=== PATIENT | male | born 1990 | race African-American/Black ===

== ENCOUNTER 2016-07-25 19:05 | Emergency (ER) | payer OTHER, MEDICAID ==
[2016-07-25 19:11] VITALS: BP 148/84; PULSE 88; RESP 16; TEMP 97.6; O2SAT 100
[2016-07-25 19:40] VITALS: RESP 16; O2SAT 97
[2016-07-25] MEDS ORDERED: SODIUM CHLOR 0.9% 1000 ML INJ 1,000 ML IV SCH (20:02)
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
[2016-07-25] MEDS ORDERED: DIPHTH/TETANUS/ACEL PERTUSSIS (BOOSTER) 0.5 ML VIAL/PFS IM ONE (20:15)
[2016-07-25] MEDS ORDERED: SODIUM CHLORIDE 0.9% FLUSH 5 ML FLUSH IVF PRN (20:15)
--- NOTE | 2016-07-25 20:28 | RADRPT ---
EXAM DATE/TIME: 07/25/2016 20:23 [facility] COMPARISON: CHEST SINGLE AP, April 10, 2015, 20:50. INDICATIONS : Evaluate chest for trauma MEDICAL HISTORY : None. SURGICAL HISTORY : None. ENCOUNTER: Initial ACUITY: 1 day PAIN SCORE: Non-responsive. LOCATION: Bilateral chest FINDINGS: A single view of the chest demonstrates the lungs to be symmetrically aerated without evidence of mas s, infiltrate or effusion. The cardiomediastinal contours are unremarkable. Osseous structures are intact. There are multiple overlying electrocardiogram leads. CONCLUSION: Negative trauma study. Ortiz Clarke MD on July 25, 2016 at 20:26 Board Certified Radiologist. This report was verified electronically.
--- NOTE | 2016-07-25 20:29 | RADRPT ---
EXAM DATE/TIME: 07/25/2016 20:25 [facility] COMPARISON: No previous studies available for comparison. INDICATIONS : Evaluate pelvis for trauma MEDICAL HISTORY : None. SURGICAL HISTORY : None. ENCOUNTER: Initial ACUITY: 1 day PAIN SCORE: Non-responsive. LOCATION: Bilateral Pelvis FINDINGS: A single frontal view of the pelvis demonstrates no evidence of fracture. The bony pelvic ring is in tact. Bony mineralization is normal. The soft tissues are intact. CONCLUSION: Negative trauma study. Ortiz Clarke MD on July 25, 2016 at 20:27 Board Certified Radiologist. This report was verified electronically.
--- NOTE | 2016-07-25 20:34 | RADRPT ---
EXAM DATE/TIME: 07/25/2016 20:20 [facility] COMPARISON: No previous studies available for comparison. INDICATIONS : Evaluate left forearm for trauma MEDICAL HISTORY : None. SURGICAL HISTORY : None. ENCOUNTER: Initial ACUITY: 1 day PAIN SCORE: Non-responsive. LOCATION: Left [place] FINDINGS: Two view examination of the left forearm demonstrates no evidence of fracture or dislocation. Bony m ineralization is normal. The soft tissue structures are intact. CONCLUSION: Negative trauma study. Ortiz Clarke MD on July 25, 2016 at 20:32 Board Certified Radiologist. This report was verified electronically.
[2016-07-25 20:45] LABS: AUTOMATED NEUTROPHIL # 4.3 TH/MM3 (1.8-7.7); BASOPHIL # 0.1 TH/MM3 (0-0.2); BASOPHIL % 0.7 % (0.0-2.0); EOSINOPHIL # 0.3 TH/MM3 (0-0.4); EOSINOPHIL % 4.1 % (0.0-4.0); HEMATOCRIT 43.2 % (39.0-51.0); HEMO FLAGS DIFF FINAL; LYMPH % 20.6 % (9.0-44.0); LYMPHOCYTE # 1.6 TH/MM3 (1.0-4.8); MEAN CELL VOLUME 85.1 FL (80.0-100.0); MEAN CORPUSCULAR HEMOGLOBIN 27.9 PG (27.0-34.0); MEAN CORPUSCULAR HGB CONC 32.8 % (32.0-36.0); MONO % 19.3 % (0.0-8.0); NEUT % 55.3 % (16.0-70.0); PLATELET COUNT 242 TH/MM3 (150-450); RED BLOOD COUNT 5.08 MIL/MM3 (4.50-5.90); RED CELL DISTRIBUTION WIDTH 13.2 % (11.6-17.2); WHITE BLOOD COUNT 7.7 TH/MM3 (4.0-11.0)
[2016-07-25 20:56] LABS: APTT (PATIENT) 25.4 SEC (24.3-30.1); INTERNATIONAL NORMALIZED RATIO 1.1 RATIO; PROTHROMBIN TIME - PATIENT 11.9 SEC (9.8-11.6)
[2016-07-25 21:01] LABS: ANION GAP 8 MEQ/L (5-15); BICARBONATE 24.1 MEQ/L (21.0-32.0); BLOOD UREA NITROGEN 16 MG/DL (7-18); CHLORIDE 105 MEQ/L (98-107); GLOMERULAR FILTRATION RATE 96 ML/MIN (>89); POTASSIUM 4.6 MEQ/L (3.5-5.1); SODIUM (NA) 137 MEQ/L (136-145)
[2016-07-25 21:30] VITALS: BP 118/66; PULSE 75; RESP 18; O2SAT 99
== END 2016-07-25 22:24 | disposition left against medical advice (07) ==
LOC: NEPA 19:05
DX: S50.812A Abrasion of left forearm, initial encounter (principal); S70.212A Abrasion, left hip, initial encounter; Z72.0 Tobacco use; V49.3XXA Car occupant (driver) (passenger) injured in unspecified nontraffic accident, initial encounter
CPT/HCPCS: 71010; 72170; 73090; 80048; 80320; 85025; 85610; 85730

== ENCOUNTER 2016-10-09 23:45 | Emergency (ER) | payer MEDICAID ==
[~2016-10-09] VITALS: Ht 193 cm; Wt 85.0 kg
[2016-10-09 23:50] VITALS: BP 140/89; PULSE 80; RESP 16; TEMP 97.6; O2SAT 99
[2016-10-10] MEDS ORDERED: SODIUM CHLORIDE 0.9% FLUSH 10 ML FLUSH IVF PRN (00:15)
[2016-10-10] MEDS ORDERED: ASPIRIN 325 MG TAB PO ONE (00:15)
[2016-10-10 00:32] LABS: AUTOMATED NEUTROPHIL # 3.2 TH/MM3 (1.8-7.7); BASOPHIL # 0.1 TH/MM3 (0-0.2); BASOPHIL % 0.9 % (0.0-2.0); EOSINOPHIL # 0.3 TH/MM3 (0-0.4); EOSINOPHIL % 4.4 % (0.0-4.0); HEMATOCRIT 43.7 % (39.0-51.0); HEMO FLAGS DIFF FINAL; LYMPH % 29.9 % (9.0-44.0); LYMPHOCYTE # 1.9 TH/MM3 (1.0-4.8); MEAN CORPUSCULAR HEMOGLOBIN 27.8 PG (27.0-34.0); MEAN CORPUSCULAR HGB CONC 32.7 % (32.0-36.0); MONO % 14.8 % (0.0-8.0); PLATELET COUNT 277 TH/MM3 (150-450); RED BLOOD COUNT 5.14 MIL/MM3 (4.50-5.90); RED CELL DISTRIBUTION WIDTH 13.5 % (11.6-17.2); WHITE BLOOD COUNT 6.4 TH/MM3 (4.0-11.0)
[2016-10-10 00:50] LABS: ANION GAP 6 MEQ/L (5-15); BICARBONATE 30.8 MEQ/L (21.0-32.0); BLOOD UREA NITROGEN 21 MG/DL (7-18); CHLORIDE 105 MEQ/L (98-107); GLOMERULAR FILTRATION RATE 86 ML/MIN (>89); MAGNESIUM 2.3 MG/DL (1.5-2.5); POTASSIUM 3.6 MEQ/L (3.5-5.1); SODIUM (NA) 142 MEQ/L (136-145)
[2016-10-10 00:54] LABS: CREATINE KINASE 447 U/L (39-308)
[2016-10-10 00:59] LABS: APTT (PATIENT) 25.4 SEC (24.3-30.1); INTERNATIONAL NORMALIZED RATIO 1.1 RATIO; PROTHROMBIN TIME - PATIENT 12.3 SEC (9.8-11.6)
--- NOTE | 2016-10-10 02:10 | RADRPT ---
EXAM DATE/TIME: 10/10/2016 00:50 [facility] COMPARISON: CHEST SINGLE AP, July 25, 2016, 20:23. INDICATIONS : Chest pain. MEDICAL HISTORY : None. SURGICAL HISTORY : None. ENCOUNTER: Initial ACUITY: 1 day PAIN SCORE: 6/10 LOCATION: Bilateral chest FINDINGS: A single view of the chest demonstrates the lungs to be symmetrically aerated without evidence of mas s, infiltrate or effusion. The cardiomediastinal contours are unremarkable. Osseous structures are intact. CONCLUSION: No acute disease. Ventura Marcial MD on October 10, 2016 at 2:08 Board Certified Radiologist. This report was verified electronically.
--- NOTE | 2016-10-10 02:35 | PD ---
HPI Chief Complaint: Chest Pain Time Seen by Provider: 00:01 Travel History International Travel<30 days: No Contact w/Intl Traveler<30days: No Traveled to known affect area: No History of Present Illness HPI This report is in ERROR Please disregard this report and all prior copies ! This report is in ERROR Please disregard this report and all prior copies ! This report is in ERROR Please disregard this report and all prior copies ! PFSH Past Medical History Hx Anticoagulant Therapy: No Asthma: Yes Cardiovascular Problems: No Chemotherapy: No Cerebrovascular Accident: No Diabetes: No Diminished Hearing: No Respiratory: No Immunizations Current: Yes Tetanus Vaccination: < 5 Years Influenza Vaccination: Yes Past Surgical History Surgical History: No Previous Surgery Hysterectomy: No Social History Alcohol Use: Yes Tobacco Use: Yes Substance Use: Yes Allergies-Medications (Allergen,Severity, Reaction): Coded Allergies: Cultivated Oat Pollen (Verified Allergy, Severe, 10/09/16) Iodine (Verified Allergy, Severe, 10/09/16) Seafood (Verified Allergy, Severe, SWELLING, SOB, 10/09/16) Dust (Verified Allergy, Intermediate, 10/09/16) Grass (Verified Allergy, Intermediate, HIVES, 10/09/16) Molds and Smuts (Verified Allergy, Unknown, sob, 10/09/16) Reported Meds & Prescriptions Reported Meds & Active Scripts Active No Active Prescriptions or Reported Medications Physical Exam Narrative This report is in ERROR Please disregard this report and all prior copies ! This report is in ERROR Please disregard this report and all prior copies ! This report is in ERROR Please disregard this report and all prior copies ! Data Data Last Documented VS Vital Signs Date Time Temp Pulse Resp B/P Pulse Ox O2 Delivery O2 Flow Rate FiO2 10/10/16 02:58 97 Room Air 10/10/16 02:58 74 18 129/86 10/10/16 02:58 98.1 Orders Electrocardiogram (10/10/16 00:01) Basic Metabolic Panel (Bmp) (10/10/16 00:01) Ckmb (Isoenzyme) Profile (10/10/16 00:01) Complete Blood Count With Diff (10/10/16 00:01) Magnesium (Mg) (10/10/16 00:01) Prothrombin Time / Inr (Pt) (10/10/16 00:01) Act Partial Throm Time (Ptt) (10/10/16 00:01) Troponin I (10/10/16 00:01) Chest, Single Ap (10/10/16 00:01) Ecg Monitoring (10/10/16 00:01) Bilateral Bp Monitoring (10/10/16 00:01) Iv Access Insert/Monitor (10/10/16 00:) Oximetry (10/10/16 00:01) Oxygen Administration (10/10/16 00:01) Aspirin (Aspirin) (10/10/16 00:15) Sodium Chloride 0.9% Flush (Ns Flush) (10/10/16 00:15) CKMB (10/10/16 00:00) CKMB% (10/10/16 00:00) Labs Laboratory Tests Test 10/10/16 00:00 White Blood Count 6.4 TH/MM3 Red Blood Count 5.14 MIL/MM3 Hemoglobin 14.3 GM/DL Hematocrit 43.7 % Mean Corpuscular Volume 85.0 FL Mean Corpuscular Hemoglobin 27.8 PG Mean Corpuscular Hemoglobin 32.7 % Concent Red Cell Distribution Width 13.5 % Platelet Count 277 TH/MM3 Mean Platelet Volume 8.0 FL Neutrophils (%) (Auto) 50.0 % Lymphocytes (%) (Auto) 29.9 % Monocytes (%) (Auto) 14.8 % Eosinophils (%) (Auto) 4.4 % Basophils (%) (Auto) 0.9 % Neutrophils # (Auto) 3.2 TH/MM3 Lymphocytes # (Auto) 1.9 TH/MM3 Monocytes # (Auto) 0.9 TH/MM3 Eosinophils # (Auto) 0.3 TH/MM3 Basophils # (Auto) 0.1 TH/MM3 CBC Comment DIFF FINAL Differential Comment Prothrombin Time 12.3 SEC Prothromb Time International 1.1 RATIO Ratio Activated Partial 25.4 SEC Thromboplast Time Sodium Level 142 MEQ/L Potassium Level 3.6 MEQ/L Chloride Level 105 MEQ/L Carbon Dioxide Level 30.8 MEQ/L Anion Gap 6 MEQ/L Blood Urea Nitrogen 21 MG/DL Creatinine 1.24 MG/DL Estimat Glomerular Filtration 86 ML/MIN Rate Random Glucose 77 MG/DL Calcium Level 9.2 MG/DL Magnesium Level 2.3 MG/DL Total Creatine Kinase 447 U/L Creatine Kinase MB 2.0 NG/ML Creatine Kinase MB % 0.4 % Troponin I LESS THAN 0.02 NG/ML MDM Medical Decision Making Medical Screen Exam Complete: Yes Emergency Medical Condition: Yes Differential Diagnosis This report is in ERROR Please disregard this report and all prior copies ! This report is in ERROR Please disregard this report and all prior copies ! This report is in ERROR Please disregard this report and all prior copies ! Narrative Course This report is in ERROR Please disregard this report and all prior copies ! This report is in ERROR Please disregard this report and all prior copies ! This report is in ERROR Please disregard this report and all prior copies ! Scripts No Active Prescriptions or Reported Meds Sadiq Woodruff MD Oct 10, 2016 02:35
--- NOTE | 2016-10-10 02:37 | PD ---
HPI Chief Complaint: Chest Pain Time Seen by Provider: 00:01 Travel History International Travel<30 days: No Contact w/Intl Traveler<30days: No Traveled to known affect area: No History of Present Illness HPI 26-year-old male arrives complaining of chest pain. He has had a cough and occasional wheezing for the past few days. He denies drug abuse. He smokes tobacco. He has no history of diabetes hypertension or hyperlipidemia. Severity moderate. PFSH Past Medical History Hx Anticoagulant Therapy: No Asthma: Yes Cardiovascular Problems: No Chemotherapy: No Cerebrovascular Accident: No Diabetes: No Diminished Hearing: No Respiratory: No Immunizations Current: Yes Tetanus Vaccination: < 5 Years Influenza Vaccination: Yes Past Surgical History Surgical History: No Previous Surgery Hysterectomy: No Social History Alcohol Use: Yes Tobacco Use: Yes Substance Use: Yes Allergies-Medications (Allergen,Severity, Reaction): Coded Allergies: Cultivated Oat Pollen (Verified Allergy, Severe, 10/09/16) Iodine (Verified Allergy, Severe, 10/09/16) Seafood (Verified Allergy, Severe, SWELLING, SOB, 10/09/16) Dust (Verified Allergy, Intermediate, 10/09/16) Grass (Verified Allergy, Intermediate, HIVES, 10/09/16) Molds and Smuts (Verified Allergy, Unknown, sob, 10/09/16) Reported Meds & Prescriptions Reported Meds & Active Scripts Active No Active Prescriptions or Reported Medications Review of Systems Except as stated in HPI: all other systems reviewed are Neg Physical Exam Narrative GENERAL: Well-nourished well-developed 26-year-old SKIN: Warm and dry. HEAD: Atraumatic. Normocephalic. EYES: Pupils equal and round. No scleral icterus. No injection or drainage. ENT: No nasal bleeding or discharge. Mucous membranes pink and moist. NECK: Trachea midline. No JVD. CARDIOVASCULAR: Regular rate and rhythm. RESPIRATORY: No accessory muscle use. Clear to auscultation. Breath sounds equal bilaterally. GASTROINTESTINAL: Abdomen soft, non-tender, nondistended. Hepatic and splenic margins not palpable. MUSCULOSKELETAL: Extremities without clubbing, cyanosis, or edema. No obvious deformities. NEUROLOGICAL: Awake and alert. No obvious cranial nerve deficits. Motor grossly within normal limits. Five out of 5 muscle strength in the arms and legs. Normal speech. PSYCHIATRIC: Appropriate mood and affect; insight and judgment normal. Data Data Last Documented VS Vital Signs Date Time Temp Pulse Resp B/P Pulse Ox O2 Delivery O2 Flow Rate FiO2 10/09/16 23:52 71 16 99 Room Air 10/09/16 23:50 97.6 140/89 Orders Electrocardiogram (10/10/16 00:01) Basic Metabolic Panel (Bmp) (10/10/16 00:01) Ckmb (Isoenzyme) Profile (10/10/16 00:) Complete Blood Count With Diff (10/10/16 00:) Magnesium (Mg) (10/10/16 00:01) Prothrombin Time / Inr (Pt) (10/10/16 00:) Act Partial Throm Time (Ptt) (10/10/16:) Troponin I (10/10/16:) Chest, Single Ap (10/10/16 00:) Ecg Monitoring (10/10/16 00:) Bilateral Bp Monitoring (10/10/16 00:) Iv Access Insert/Monitor (10/10/16 00:) Oximetry (10/10/16 00:) Oxygen Administration (10/10/16 00:01) Aspirin (Aspirin) (10/10/16 00:15) Sodium Chloride 0.9% Flush (Ns Flush) (10/10/16 00:15) CKMB (10/10/16 00:00) CKMB% (10/10/16 00:00) Labs Laboratory Tests Test 10/10/16 00:00 White Blood Count 6.4 TH/MM3 Red Blood Count 5.14 MIL/MM3 Hemoglobin 14.3 GM/DL Hematocrit 43.7 % Mean Corpuscular Volume 85.0 FL Mean Corpuscular Hemoglobin 27.8 PG Mean Corpuscular Hemoglobin 32.7 % Concent Red Cell Distribution Width 13.5 % Platelet Count 277 TH/MM3 Mean Platelet Volume 8.0 FL Neutrophils (%) (Auto) 50.0 % Lymphocytes (%) (Auto) 29.9 % Monocytes (%) (Auto) 14.8 % Eosinophils (%) (Auto) 4.4 % Basophils (%) (Auto) 0.9 % Neutrophils # (Auto) 3.2 TH/MM3 Lymphocytes # (Auto) 1.9 TH/MM3 Monocytes # (Auto) 0.9 TH/MM3 Eosinophils # (Auto) 0.3 TH/MM3 Basophils # (Auto) 0.1 TH/MM3 CBC Comment DIFF FINAL Differential Comment Prothrombin Time 12.3 SEC Prothromb Time International 1.1 RATIO Ratio Activated Partial 25.4 SEC Thromboplast Time Sodium Level 142 MEQ/L Potassium Level 3.6 MEQ/L Chloride Level 105 MEQ/L Carbon Dioxide Level 30.8 MEQ/L Anion Gap 6 MEQ/L Blood Urea Nitrogen 21 MG/DL Creatinine 1.24 MG/DL Estimat Glomerular Filtration 86 ML/MIN Rate Random Glucose 77 MG/DL Calcium Level 9.2 MG/DL Magnesium Level 2.3 MG/DL Total Creatine Kinase 447 U/L Creatine Kinase MB 2.0 NG/ML Creatine Kinase MB % 0.4 % Troponin I LESS THAN 0.02 NG/ML MDM Medical Decision Making Medical Screen Exam Complete: Yes Emergency Medical Condition: Yes Medical Record Reviewed: Yes Differential Diagnosis NSTEMI, unstable angina, coronary vasospasm, PE, PTX, aortic dissection, pericarditis, myocarditis, endocarditis, PNA, esophageal disease, aneurysm, musculoskeletal etiologies, anxiety, cocaine/sympathomimetic abuse Narrative Course EKG reveals sinus rhythm with rate of 84 no ischemic injury pattern CBC & BMP Diagram 10/10/16 00:00 Troponin is undetectable Chest x-ray shows no acute disease The patient is resting comfortably and feels better, is alert and in no distress. The patients results and examination findings were discussed. The repeat examination is unremarkable and benign. The history, exam, diagnostic testing, and current condition do not suggest any significant pathology to warrant further testing, continued ED treatment, admission, or surgical evaluation at this point. The vital signs have been stable. The patient does not have uncontrollable pain, intractable vomiting, or other significant symptoms. The patient's condition is stable and appropriate for discharge. The patient will pursue further outpatient evaluation with a primary care physician or other designated or consulting physician as indicated in the discharge instructions. The patient expressed understanding and was agreeable with this plan. Diagnosis Primary Impression: Chest pain Qualified Code: R07.9 - Chest pain, unspecified type Additional Impression: Cough Referrals: Primary Care Physician 2 days Additional Instructions: You have a choice when it comes to health care, and we are glad that you chose [facility]. Hopefully, we have met your expectations on today's visit. You are welcome to return to [facility] at any time, as we are committed to meeting the health care needs of our community. Med/Other Pt SpecificInfo: No Change to Meds Scripts No Active Prescriptions or Reported Meds Disposition: 01 DISCHARGE HOME Condition: Stable Sadiq Woodruff MD Oct 10, 2016 02:37
[2016-10-10 02:58] VITALS: BP_SYST 129; BP_DIAS 73; BP_DIAS 86; PULSE 74; PULSE 81; RESP 18; TEMP 98.1; O2SAT 100
--- NOTE | 2016-10-11 12:56 | EKG ---
Date Performed: 10/09/2016 Time Performed: 23:56:24 PTAGE: 26 years EKG: Sinus rhythm NORMAL ECG PREVIOUS TRACING : 08/25/2011 02.00 Compared to prior tracing no significant change DOCTOR: Chicho Martini Interpretating Date/Time 10/11/2016 12:54:10
== END 2016-10-10 03:15 | disposition home or self-care (01) ==
LOC: NEPC 23:45
DX: R07.9 Chest pain, unspecified (principal); R05 Cough
CPT/HCPCS: 71010; 80048; 82550; 82552; 83735; 84484; 85025; 85610; 85730; 93005

== ENCOUNTER 2016-11-26 13:39 | Emergency (ER) | payer MEDICAID ==
[~2016-11-26] VITALS: Ht 190.5 cm; Wt 82.0 kg
[2016-11-26 13:45] VITALS: BP 126/98; PULSE 91; RESP 14; TEMP 98.1; O2SAT 99
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
[2016-11-26] MEDS ORDERED: AUGM875T PO (14:31)
== END 2016-11-26 15:01 | disposition home or self-care (01) ==
LOC: NEPK 13:39
DX: S81.851A Open bite, right lower leg, initial encounter (principal); J45.909 Unspecified asthma, uncomplicated; F81.9 Developmental disorder of scholastic skills, unspecified; Z72.0 Tobacco use; W54.0XXA Bitten by dog, initial encounter; Y93.01 Activity, walking, marching and hiking; Y92.9 Unspecified place or not applicable; Y99.8 Other external cause status
CPT/HCPCS: 99283; E0113

== ENCOUNTER 2016-12-02 05:19 | Emergency (ER) | payer MEDICAID ==
[~2016-12-02] VITALS: Ht 182.9 cm; Wt 75.0 kg
[~2016-12-02 05:19] MED LIST: AUGM875T PO
[2016-12-02 05:24] VITALS: BP 148/98; PULSE 113; RESP 18; TEMP 99.1; O2SAT 100
[2016-12-02] MEDS ORDERED: TETANUS/DIPHTHERIA TOXOID ADULT 0.5 ML VIAL IM ONE (05:30)
[2016-12-02] MEDS ORDERED: ACETAMINOPHEN/HYDROcodone 325 MG/5 MG TAB PO ONE (05:30)
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
== END 2016-12-02 09:15 | disposition home or self-care (01) ==
LOC: NEPC 05:19
DX: S71.112A Laceration without foreign body, left thigh, initial encounter (principal); X99.1XXA Assault by knife, initial encounter; Z23 Encounter for immunization
CPT/HCPCS: 12002; 73552; 90471; 90714

== ENCOUNTER 2017-01-19 19:45 | Emergency (ER) | payer MEDICAID ==
[2017-01-19 19:46] VITALS: BP 141/92; PULSE 124; RESP 16; TEMP 98.9; O2SAT 97
== END 2017-01-19 22:42 | disposition left against medical advice (07) ==
LOC: NED 19:45
DX: Z53.29 Procedure and treatment not carried out because of patient's decision for other reasons (principal)
CPT/HCPCS: 99281

== ENCOUNTER 2017-01-20 16:05 | Emergency (ER) | payer MEDICAID ==
[~2017-01-20] VITALS: Ht 182.9 cm; Wt 75.0 kg
[2017-01-20 16:06] VITALS: BP 136/81; PULSE 90; RESP 20; TEMP 98.1; O2SAT 98
[2017-01-20 16:33] VITALS: BP 118/77; PULSE 84; RESP 16; O2SAT 98
[2017-01-20] MEDS ORDERED: SODIUM CHLOR 0.9% 1000 ML INJ 1,000 ML IV ONE (16:33)
[2017-01-20 16:36] VITALS: O2SAT 99
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
[2017-01-20] MEDS ORDERED: SODIUM CHLORIDE 0.9% FLUSH 10 ML FLUSH IVF PRN (16:45)
[2017-01-20 16:58] LABS: BASOPHIL # 0.1 TH/MM3 (0-0.2); BASOPHIL % 0.7 % (0.0-2.0); EOSINOPHIL # 0.2 TH/MM3 (0-0.4); EOSINOPHIL % 2.6 % (0.0-4.0); HEMATOCRIT 48.3 % (39.0-51.0); HEMO FLAGS DIFF FINAL; LYMPH % 27.9 % (9.0-44.0); LYMPHOCYTE # 2.2 TH/MM3 (1.0-4.8); MEAN CORPUSCULAR HEMOGLOBIN 27.6 PG (27.0-34.0); MEAN CORPUSCULAR HGB CONC 31.8 % (32.0-36.0); NEUT % 51.8 % (16.0-70.0); PLATELET COUNT 247 TH/MM3 (150-450); RED BLOOD COUNT 5.55 MIL/MM3 (4.50-5.90); RED CELL DISTRIBUTION WIDTH 13.5 % (11.6-17.2); WHITE BLOOD COUNT 7.8 TH/MM3 (4.0-11.0)
[2017-01-20 18:04] LABS: BICARBONATE 28.6 MEQ/L (21.0-32.0); MAGNESIUM 2.2 MG/DL (1.5-2.5); POTASSIUM 4.1 MEQ/L (3.5-5.1)
[2017-01-20 18:29] VITALS: BP 124/72
--- NOTE | 2017-01-21 16:34 | EKG ---
Date Performed: 01/20/2017 Time Performed: 16:44:10 PTAGE: 26 years EKG: Sinus rhythm WITH SHORT [place] INTERVAL NONSPECIFIC T-WAVE ABNORMALITY ABNORMAL ECG PREVIOUS TRACING : 10/09/2016 23.56 Compared to prior tracing no significant change DOCTOR: Rommel Woodruff Interpretating Date/Time 01/21/2017 16:33:10
== END 2017-01-20 18:57 | disposition home or self-care (01) ==
LOC: NEPC 16:05
DX: R55 Syncope and collapse (principal); E86.0 Dehydration; I95.1 Orthostatic hypotension; R42 Dizziness and giddiness; J45.909 Unspecified asthma, uncomplicated; R94.31 Abnormal electrocardiogram [ECG] [EKG]; Z72.0 Tobacco use
CPT/HCPCS: 80048; 83735; 85025; 93005; 96360; 99284; J7030

== ENCOUNTER 2017-01-28 17:17 | Emergency (ER) | payer MEDICAID ==
[~2017-01-28] VITALS: Ht 190.5 cm; Wt 85.0 kg
[2017-01-28 17:19] VITALS: BP 135/88; PULSE 88; RESP 16; TEMP 98.3; O2SAT 99
[2017-01-28] MEDS ORDERED: SODIUM CHLOR 0.9% 1000 ML INJ 1,000 ML IV ONE ×2 (18:40→18:45)
[2017-01-28] MEDS ORDERED: SODIUM CHLORIDE 0.9% FLUSH 10 ML FLUSH IVF PRN (18:45)
[2017-01-28] MEDS ORDERED: ONDANSETRON HCL 4 MG/2 ML VIAL IVP ONE (18:45)
--- NOTE | 2017-01-28 18:50 | PD ---
HPI Chief Complaint: Medical Clearance Time Seen by Provider: 18:15 Travel History International Travel<30 days: No Contact w/Intl Traveler<30days: No Traveled to known affect area: No History of Present Illness HPI The patient is a 26-year-old June male who presents to the emergency department for lightheadedness, dizziness, and near syncope. The patient states he had a near syncopal episode earlier this month while working. The patient felt like he is going to pass out, was able to catch himself just prior to hitting the ground. He is unsure if there was a loss of consciousness. 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 The patient states he would drink a small amount of water, however, is not drinking enough water to stay hydrated. He is requesting a medication to make an drink more water while he is at work. The patient states when he gets home he feels exhausted and falls asleep immediately. He denies any polyuria or polyphagia, denies any personal history of diabetes. He denies any chest pain, shortness of breath, palpitations, or history of arrhythmia. The patient states he played sports in high school and never had any exertional shortness of breath or chest pain. Symptoms are mild to moderate, possibly exacerbated by dehydration, and there are no current alleviating factors. PFSH Past Medical History Medical History: Denies Significant Hx Hx Anticoagulant Therapy: No Asthma: Yes (as a child) Cardiovascular Problems: No Chemotherapy: No Cerebrovascular Accident: No Diabetes: No Diminished Hearing: No Respiratory: Yes (ASTHMA) Immunizations Current: Yes Tetanus Vaccination: < 5 Years Past Surgical History Hysterectomy: No Social History Alcohol Use: No Tobacco Use: Yes Substance Use: No Allergies-Medications (Allergen,Severity, Reaction): Coded Allergies: Cultivated Oat Pollen (Verified Allergy, Severe, 01/28/17) Iodine (Verified Allergy, Severe, 01/28/17) Seafood (Verified Allergy, Severe, SWELLING, SOB, 01/28/17) Dust (Verified Allergy, Intermediate, 01/28/17) Grass (Verified Allergy, Intermediate, HIVES, 01/28/17) Molds and Smuts (Verified Allergy, Unknown, sob, 01/28/17) Reported Meds & Prescriptions Reported Meds & Active Scripts Active No Active Prescriptions or Reported Medications Review of Systems Except as stated in HPI: all other systems reviewed are Neg General / Constitutional: No: Fever HENT: Positive: Lightheadedness Cardiovascular: No: Chest Pain or Discomfort, Palpitations, Tachycardia, Diaphoresis, Syncope Respiratory: No: Shortness of Breath Gastrointestinal: No: Nausea, Vomiting, Abdominal Pain Musculoskeletal: Positive: Weakness, No: Myalgias, Arthralgias Neurologic: Positive: Dizziness Physical Exam Narrative GENERAL: Awake, alert, pleasant 26-year-old male who appears his stated age and is in no acute respiratory distress. SKIN: Focused skin assessment warm/dry. HEAD: Atraumatic. Normocephalic. EYES: Pupils equal and round. No scleral icterus. No injection or drainage. ENT: No nasal bleeding or discharge. Dry mucous membranes. NECK: Trachea midline. No JVD. CARDIOVASCULAR: Regular rate and rhythm. No murmur appreciated. Heart rate in the 80s. RESPIRATORY: No accessory muscle use. Clear to auscultation. Breath sounds equal bilaterally. GASTROINTESTINAL: Abdomen soft, non-tender, nondistended. No rebound tenderness. MUSCULOSKELETAL: No obvious deformities. No clubbing. No cyanosis. No edema. NEUROLOGICAL: Awake and alert. No obvious cranial nerve deficits. Motor grossly within normal limits. Normal speech. PSYCHIATRIC: Appropriate mood and affect; insight and judgment normal. Data Data Last Documented VS Vital Signs Date Time Temp Pulse Resp B/P Pulse Ox O2 Delivery O2 Flow Rate FiO2 01/28/17 19:28 86 18 133/79 91 18 140/90 92 18 139/90 01/28/17 17:19 98.3 99 Room Air Orders Electrocardiogram (01/28/17 18:40) Complete Blood Count With Diff (01/28/17 18:40) Comprehensive Metabolic Panel (01/28/17 18:40) Magnesium (Mg) (01/28/17 18:40) Ecg Monitoring (01/28/17 18:40) Iv Access Insert/Monitor (01/28/17 18:40) Oximetry (01/28/17 18:40) Ondansetron Inj (Zofran Inj) (01/28/17 18:45) Sodium Chloride 0.9% Flush (Ns Flush) (01/28/17 18:45) Sodium Chlor 0.9% 1000 Ml Inj (Ns 1000 M (01/28/17 18:40) Orthostatic Vital Signs (01/28/17 18:40) Sodium Chlor 0.9% 1000 Ml Inj (Ns 1000 M (01/28/17 18:45) Ondansetron Inj (Zofran Inj) (01/28/17 20:00) Labs Laboratory Tests Test 01/28/17 18:45 White Blood Count 9.8 TH/MM3 Red Blood Count 4.75 MIL/MM3 Hemoglobin 13.7 GM/DL Hematocrit 40.9 % Mean Corpuscular Volume 86.2 FL Mean Corpuscular Hemoglobin 28.8 PG Mean Corpuscular Hemoglobin 33.4 % Concent Red Cell Distribution Width 12.9 % Platelet Count 204 TH/MM3 Mean Platelet Volume 8.1 FL Neutrophils (%) (Auto) 76.0 % Lymphocytes (%) (Auto) 14.5 % Monocytes (%) (Auto) 7.7 % Eosinophils (%) (Auto) 1.1 % Basophils (%) (Auto) 0.7 % Neutrophils # (Auto) 7.4 TH/MM3 Lymphocytes # (Auto) 1.4 TH/MM3 Monocytes # (Auto) 0.8 TH/MM3 Eosinophils # (Auto) 0.1 TH/MM3 Basophils # (Auto) 0.1 TH/MM3 CBC Comment DIFF FINAL Differential Comment Sodium Level 136 MEQ/L Potassium Level 4.1 MEQ/L Chloride Level 106 MEQ/L Carbon Dioxide Level 25.9 MEQ/L Anion Gap 4 MEQ/L Blood Urea Nitrogen 23 MG/DL Creatinine 1.11 MG/DL Estimat Glomerular Filtration 98 ML/MIN Rate Random Glucose 90 MG/DL Calcium Level 9.4 MG/DL Magnesium Level 1.8 MG/DL Total Bilirubin 0.4 MG/DL Aspartate Amino Transf 27 U/L (AST/SGOT) Alanine Aminotransferase 11 U/L (ALT/SGPT) Alkaline Phosphatase 73 U/L Total Protein 7.7 GM/DL Albumin 3.7 GM/DL MDM Medical Decision Making Medical Screen Exam Complete: Yes Emergency Medical Condition: Yes Medical Record Reviewed: Yes Interpretation(s) EKG reveals normal sinus rhythm with a rate of 79. NM interval slightly shortened in the 114 ms, no delta wave noted to suggest WPW. May be LGL versus normal variant. Q wave noted in lead 3, no evidence of Brugada syndrome. Laboratory Tests Test 01/28/17 18:45 White Blood Count 9.8 TH/MM3 Red Blood Count 4.75 MIL/MM3 Hemoglobin 13.7 GM/DL Hematocrit 40.9 % Mean Corpuscular Volume 86.2 FL Mean Corpuscular Hemoglobin 28.8 PG Mean Corpuscular Hemoglobin 33.4 % Concent Red Cell Distribution Width 12.9 % Platelet Count 204 TH/MM3 Mean Platelet Volume 8.1 FL Neutrophils (%) (Auto) 76.0 % Lymphocytes (%) (Auto) 14.5 % Monocytes (%) (Auto) 7.7 % Eosinophils (%) (Auto) 1.1 % Basophils (%) (Auto) 0.7 % Neutrophils # (Auto) 7.4 TH/MM3 Lymphocytes # (Auto) 1.4 TH/MM3 Monocytes # (Auto) 0.8 TH/MM3 Eosinophils # (Auto) 0.1 TH/MM3 Basophils # (Auto) 0.1 TH/MM3 CBC Comment DIFF FINAL Differential Comment Sodium Level 136 MEQ/L Potassium Level 4.1 MEQ/L Chloride Level 106 MEQ/L Carbon Dioxide Level 25.9 MEQ/L Anion Gap 4 MEQ/L Blood Urea Nitrogen 23 MG/DL Creatinine 1.11 MG/DL Estimat Glomerular Filtration 98 ML/MIN Rate Random Glucose 90 MG/DL Calcium Level 9.4 MG/DL Magnesium Level 1.8 MG/DL Total Bilirubin 0.4 MG/DL Aspartate Amino Transf 27 U/L (AST/SGOT) Alanine Aminotransferase 11 U/L (ALT/SGPT) Alkaline Phosphatase 73 U/L Total Protein 7.7 GM/DL Albumin 3.7 GM/DL Differential Diagnosis Differential diagnosis includes near-syncope, dehydration, aortic stenosis, arrhythmia, hypokalemia, hyperkalemia, hypocalcemia, overexertion, heat exhaustion. Narrative Course IV was established, labs are drawn and sent, and the patient was placed on cardiac telemetry monitoring and continuous pulse oximetry monitoring. EKG was ordered and interpreted. Orthostatic vital signs were obtained. The patient was administered 2 L of IV fluids and Zofran 4 mg intravenously. EKG reveals a slightly shortened NM interval of 114 ms, but there is no delta wave to suggest WPW. May be LGL or normal variant, patient will require outpatient follow-up with cardiology if symptoms persist. The patient had 1 L of IV fluids, but didn 't want the second liter, states that the normal saline exacerbated his nausea. The patient developed a Zofran because he states Zofran makes him dizzy. The patient's orthostatic vitals are unremarkable. Patient is advised to follow-up with her primary physician on an outpatient basis. Diagnosis Primary Impression: Near syncope Patient Instructions: General Instructions Additional Instructions: Drink plenty of fluids to stay hydrated. Follow-up with a primary physician. Follow-up with a military cook for echocardiogram and Holter monitor if symptoms persist. Scripts No Active Prescriptions or Reported Meds Disposition: 01 DISCHARGE HOME Condition: Stable Gray Farley MD Jan 28, 2017 18:50
[2017-01-28 19:00] LABS: AUTOMATED NEUTROPHIL # 7.4 TH/MM3 (1.8-7.7); BASOPHIL # 0.1 TH/MM3 (0-0.2); BASOPHIL % 0.7 % (0.0-2.0); EOSINOPHIL # 0.1 TH/MM3 (0-0.4); EOSINOPHIL % 1.1 % (0.0-4.0); HEMATOCRIT 40.9 % (39.0-51.0); HEMO FLAGS DIFF FINAL; LYMPH % 14.5 % (9.0-44.0); LYMPHOCYTE # 1.4 TH/MM3 (1.0-4.8); MEAN CELL VOLUME 86.2 FL (80.0-100.0); MEAN CORPUSCULAR HEMOGLOBIN 28.8 PG (27.0-34.0); MEAN CORPUSCULAR HGB CONC 33.4 % (32.0-36.0); MONO % 7.7 % (0.0-8.0); PLATELET COUNT 204 TH/MM3 (150-450); RED BLOOD COUNT 4.75 MIL/MM3 (4.50-5.90); RED CELL DISTRIBUTION WIDTH 12.9 % (11.6-17.2); WHITE BLOOD COUNT 9.8 TH/MM3 (4.0-11.0)
[2017-01-28 19:08] LABS: ANION GAP 4 MEQ/L (5-15); AST (GOT) 27 U/L (15-37); BICARBONATE 25.9 MEQ/L (21.0-32.0); BLOOD UREA NITROGEN 23 MG/DL (7-18); CHLORIDE 106 MEQ/L (98-107); GLOMERULAR FILTRATION RATE 98 ML/MIN (>89); MAGNESIUM 1.8 MG/DL (1.5-2.5); POTASSIUM 4.1 MEQ/L (3.5-5.1); SODIUM (NA) 136 MEQ/L (136-145)
[2017-01-28 19:09] LABS: ALT (GPT) 11 U/L (12-78)
[2017-01-28 19:12] LABS: ALKALINE PHOSPHATASE 73 U/L (45-117); TOTAL BILIRUBIN ADULT 0.4 MG/DL (0.2-1.0)
[2017-01-28 19:28] VITALS: BP_SYST 133; BP_SYST 139; BP_SYST 140; BP_DIAS 79; BP_DIAS 90; RESP 18
[2017-01-28] MEDS ORDERED: ONDANSETRON HCL 4 MG/2 ML VIAL IV PUSH ONE (20:00)
--- NOTE | 2017-01-29 12:44 | EKG ---
Date Performed: 01/28/2017 Time Performed: 19:09:22 PTAGE: 26 years EKG: Sinus rhythm WITH SHORT OK INTERVAL Compared to prior tracing no significant change BORDERLINE ECG PREVIOUS TRACING : 01/20/2017 16.44 DOCTOR: Bradley Camacho Interpretating Date/Time 01/29/2017 12:36:24
== END 2017-01-28 20:12 | disposition home or self-care (01) ==
LOC: NEPD 17:17
DX: R55 Syncope and collapse (principal); R94.31 Abnormal electrocardiogram [ECG] [EKG]; Z72.0 Tobacco use
CPT/HCPCS: 80053; 83735; 85025; 93005; 96361; 96374; 99284; J2405; J7030

== ENCOUNTER 2017-02-05 13:54 | Emergency (ER) | payer MEDICAID ==
[~2017-02-05] VITALS: Ht 190.5 cm; Wt 80.0 kg
[2017-02-05 13:55] VITALS: BP 140/79; PULSE 79; RESP 15; TEMP 98.2; O2SAT 99
[2017-02-05] MEDS ORDERED: ASPIRIN 81 MG CHEW TAB PO ONE (14:45)
[2017-02-05] MEDS ORDERED: SODIUM CHLORIDE 0.9% FLUSH 10 ML FLUSH IVF PRN (14:45)
[2017-02-05] MEDS ORDERED: SODIUM CHLOR 0.9% 1000 ML INJ 1,000 ML IV ONE (14:45)
--- NOTE | 2017-02-05 14:59 | PD ---
HPI Chief Complaint: Medical Clearance Time Seen by Provider: 14:45 Travel History International Travel<30 days: No Contact w/Intl Traveler<30days: No Traveled to known affect area: No History of Present Illness HPI 26-year-old male presents to the emergency department for reevaluation and EKG. The patient was seen on January 20 and January 29, 2000 for syncope, lightheadedness. He probably had a syncopal episode on January 18, 2017 while he was at work. The patient states he has not had a single episode symptoms. However, he has had lightheadedness dizziness and feels like he is going to pass out. He will sit before it happens. The patient states he works in a hot environment. He also states that he is now having to go sleep in a hot car. His mother kicked him out of his house and he is now sleeping in the car in the driveway which is not running when he is sleeping in it. He states he is trying to drink water, but does not feel like he is able to stay hydrated. The patient reports generalized weakness. He denies any current chest pain, shortness of breath. He states he did have chest pain previously, but has not at this time. He denies any abdominal pain, nausea, vomiting, diarrhea. PFSH Past Medical History Hx Anticoagulant Therapy: No Asthma: Yes (as a child) Cardiovascular Problems: No Chemotherapy: No Cerebrovascular Accident: No Diabetes: No Diminished Hearing: No Respiratory: Yes (ASTHMA) Immunizations Current: No Tetanus Vaccination: < 5 Years Influenza Vaccination: Yes Past Surgical History Hysterectomy: No Social History Alcohol Use: No Tobacco Use: Yes Substance Use: No Allergies-Medications (Allergen,Severity, Reaction): Coded Allergies: Cultivated Oat Pollen (Verified Allergy, Severe, 02/05/17) Iodine (Verified Allergy, Severe, 02/05/17) Seafood (Verified Allergy, Severe, SWELLING, SOB, 02/05/17) Dust (Verified Allergy, Intermediate, 02/05/17) Grass (Verified Allergy, Intermediate, HIVES, 02/05/17) Molds and Smuts (Verified Allergy, Unknown, sob, 02/05/17) Reported Meds & Prescriptions Reported Meds & Active Scripts Active No Active Prescriptions or Reported Medications Review of Systems Except as stated in HPI: all other systems reviewed are Neg Physical Exam Narrative GENERAL: Well-nourished, well-developed male patient, ambulatory. Afebrile. SKIN: Focused skin assessment warm/dry. HEAD: Normocephalic. Atraumatic. EYES: No scleral icterus. No injection or drainage. NECK: Supple, trachea midline. No JVD or lymphadenopathy. CARDIOVASCULAR: Regular rate and rhythm without murmurs, gallops, or rubs. RESPIRATORY: Breath sounds equal bilaterally. No accessory muscle use. Lungs sounds are clear to auscultation. GASTROINTESTINAL: Abdomen soft, non-tender, nondistended. No abdominal pain to palpation. MUSCULOSKELETAL: No cyanosis, or edema. BACK: Nontender without obvious deformity. No CVA tenderness. Data Data Last Documented VS Vital Signs Date Time Temp Pulse Resp B/P Pulse Ox O2 Delivery O2 Flow Rate FiO2 02/05/17 13:55 98.2 79 15 140/79 99 Orders Electrocardiogram (02/05/17 ) Electrocardiogram (02/05/17 14:39) Complete Blood Count With Diff (02/05/17 14:39) Comprehensive Metabolic Panel (02/05/17 14:39) Magnesium (Mg) (02/05/17 14:39) Prothrombin Time / Inr (Pt) (02/05/17 14:39) Act Partial Throm Time (Ptt) (02/05/17 14:39) Troponin I (02/05/17 14:39) Chest, Single Ap (02/05/17 14:39) Ecg Monitoring (02/05/17 14:39) Bilateral Bp Monitoring (02/05/17 14:39) Iv Access Insert/Monitor (02/05/17 14:39) Oximetry (02/05/17 14:39) Oxygen Administration (02/05/17 14:39) Aspirin Chew (Aspirin Chew) (02/05/17 14:45) Sodium Chloride 0.9% Flush (Ns Flush) (02/05/17 14:45) Creatine Kinase (Cpk) (02/05/17 14:39) Sodium Chlor 0.9% 1000 Ml Inj (Ns 1000 M (02/05/17 14:45) MDM Medical Decision Making Medical Screen Exam Complete: Yes Emergency Medical Condition: Yes Medical Record Reviewed: Yes Differential Diagnosis Dehydration versus rhabdomyolysis versus electrolyte abnormality versus ACS Narrative Course 26-year-old male presents to the emergency department for evaluation of feeling dehydrated, generalized weakness. He works in a hot environment is now sleeping in a hot car at night. Patient feels lightheaded and feels like he is going to pass out. EKG is changed from previous EKG. He does have shortened ME interval. He also now has biphasic T waves in V3 and V4 which is new for patient. This is consistent with Wellens syndrome. CBC, CMP, magnesium, CK, troponin, PTT, PT/INR are ordered and pending. ASA 162 mg PO, NS 1 L IV bolus are ordered and pending. Chest x-ray is ordered and pending. Before any labs or imaging could be completed, patient called me into room, to let me know that he did not want to stay in the hospital. He is concerned he will lose his job. I stressed to the patient that he has an abnormal EKG and needs to stay in the hospital. He continues to decline any further testing or imaging. My attending physician, Dr. Fernandes, spoke to patient as well to try to convince him to stay for further workup and admission. Patient is aware of risks of leaving AMA including and up to sudden cardiac . He verbalizes understanding. He is aware that he can return at anytime for further workup. AMA: The risks of leaving against medical advice without further evaluation treatment were discussed with the patient. These risks include cardiac dysfunction, cardiac dysrhythmia, possible heart attack, possible stroke or . The patient indicated understanding of these risks and appeared to have the capacity to make this decision. Diagnosis Primary Impression: Left against medical advice Additional Impression: Near syncope Scripts No Active Prescriptions or Reported Meds Disposition: 07 AGAINST MEDICAL ADVICE Michelle Rodriguez Feb 05, 2017 14:59
--- NOTE | 2017-02-05 15:03 | RADRPT ---
EXAM DATE/TIME: 02/05/2017 14:43 [facility] COMPARISON: No previous studies available for comparison. INDICATIONS : Chest pain MEDICAL HISTORY : None. SURGICAL HISTORY : None. ENCOUNTER: Initial ACUITY: 3 days PAIN SCORE: 4/10 LOCATION: chest FINDINGS: A single view of the chest demonstrates the lungs to be symmetrically aerated without evidence of mas s, infiltrate or effusion. The cardiomediastinal contours are unremarkable. Osseous structures are intact. CONCLUSION: No acute disease. Ventura Marcial MD on February 05, 2017 at 15:01 Board Certified Radiologist. This report was verified electronically.
--- NOTE | 2017-02-05 15:10 | PD ---
Data Data Last Documented VS Vital Signs Date Time Temp Pulse Resp B/P Pulse Ox O2 Delivery O2 Flow Rate FiO2 02/05/17 13:55 98.2 79 15 140/79 99 Orders Electrocardiogram (02/05/17 ) Electrocardiogram (02/05/17 14:39) Complete Blood Count With Diff (02/05/17 14:39) Comprehensive Metabolic Panel (02/05/17 14:39) Magnesium (Mg) (02/05/17 14:39) Prothrombin Time / Inr (Pt) (02/05/17 14:39) Act Partial Throm Time (Ptt) (02/05/17 14:39) Troponin I (02/05/17 14:39) Chest, Single Ap (02/05/17 14:39) Ecg Monitoring (02/05/17 14:39) Bilateral Bp Monitoring (02/05/17 14:39) Iv Access Insert/Monitor (02/05/17 14:39) Oximetry (02/05/17 14:39) Oxygen Administration (02/05/17 14:39) Aspirin Chew (Aspirin Chew) (02/05/17 14:45) Sodium Chloride 0.9% Flush (Ns Flush) (02/05/17 14:45) Creatine Kinase (Cpk) (02/05/17 14:39) Sodium Chlor 0.9% 1000 Ml Inj (Ns 1000 M (02/05/17 14:45) MDM Supervised Visit with ALEJANDRO: Yes Narrative Course I, Dr. Fernandes, have reviewed the advance practice practioner's documentation and am in agreement, met with the patient face to face, made the diagnosis, and the medical decision making was done by me. *My assessment and Findings: 26-year-old male here for complaint of syncope, lightheadedness. Patient has been having recurrent syncopal or presyncopal episodes over the course the last several weeks to month. Some of these are with chest pain, shortness breath and some without. Some are within no warm environment, some without. Today he states that he feels generally weak, fatigued despite trying to hydrate and drink water. He did have chest pain previously today but none at this time. Patient he is here requesting a repeat EKG. Examination is unremarkable, regular rate and rhythm, clear to auscultation bilaterally. Differential includes dehydration, electrolyte abnormality, rhabdomyolysis, arrhythmia, ACS, anxiety, symptomatic anemia. Patient placed on monitor. Twelve-lead EKG shows sinus rhythm with short MA interval, and new ischemic changes in V3 and V4 with biphasic T waves consistent with Wellens. Patient is asymptomatic at this time without any chest pain. Question LGL variant of WPW. Patient was recommended to have labs and stay for admission and further cardiac evaluation as he has had evolving EKG changes. Long discussion about risks and benefits of leaving were discussed with patient. He works at the [employer] close to the hospital and states that he doesn't want to lose his job. I offered to fax over a work release note or called them myself that patient wants to present and person. Ultimately he does have the capacity to make decisions for himself and signed out AMA. I recommended the patient return to the emergency department as soon as possible for further management, admission. Scripts No Active Prescriptions or Reported Meds Claire Fernandes MD Feb 05, 2017 15:10
--- NOTE | 2017-02-05 18:50 | EKG ---
Date Performed: 02/05/2017 Time Performed: 14:30:31 PTAGE: 26 years EKG: Sinus rhythm WITH SHORT IL INTERVAL MINIMAL VOLTAGE CRITERIA FOR LVH, CONSIDER NORMAL VARIANT ST/T-WAVE ABNORMALI TY, CONSIDER ANTERIOR ISCHEMIA ABNORMAL ECG PREVIOUS TRACING : 01/28/2017 19.09 Compared to previous tracing, anterior T wave abnormality i s now evident. DOCTOR: Felton Loomis Interpretating Date/Time 02/05/2017 18:48:38
== END 2017-02-05 15:30 | disposition left against medical advice (07) ==
LOC: NEPD 13:54
DX: R55 Syncope and collapse (principal); R42 Dizziness and giddiness; R53.1 Weakness; R53.83 Other fatigue; J45.909 Unspecified asthma, uncomplicated; Z72.0 Tobacco use; R94.31 Abnormal electrocardiogram [ECG] [EKG]
CPT/HCPCS: 71010; 93005; 99285

== ENCOUNTER 2017-08-12 17:21 | Emergency (ER) | payer OTHER ==
[2017-08-12 20:17] VITALS: BP 135/72; PULSE 73; RESP 16; TEMP 98.6; O2SAT 95
[2017-08-12] MEDS ORDERED: DICL75TA PO (20:26)
[2017-08-12] MEDS ORDERED: CYCL10TA PO (20:26)
[2017-08-12] MEDS ORDERED: CYCLOBENZAPRINE HCL 10 MG TAB PO ONE (20:30)
[2017-08-12] MEDS ORDERED: NAPROXEN 500 MG TAB PO ONE (20:30)
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
== END 2017-08-12 21:15 | disposition home or self-care (01) ==
LOC: NEPD 17:21
DX: S16.1XXA Strain of muscle, fascia and tendon at neck level, initial encounter (principal); V89.2XXA Person injured in unspecified motor-vehicle accident, traffic, initial encounter; Y92.481 Parking lot as the place of occurrence of the external cause
CPT/HCPCS: 72040; 99284